=== PATIENT | female | born 1985 | race Caucasian/White ===

== ENCOUNTER → 2023-12-29 10:18 | Outpatient (REF) | payer OTHER, SELFPAY | LOC: REG 10:18 | PROVIDERS: ATTENDING PHYSICIAN Obstetrics & Gynecology | DX: Z34.90 Encounter for supervision of normal pregnancy, unspecified, unspecified trimester (principal) | CPT/HCPCS: 36415; 86850; 86870; 86900; 86901; J2790 ==

== ENCOUNTER 2024-03-16 19:08 | Inpatient (IN) | payer OTHER, SELFPAY ==
[2024-03-16 19:51] VITALS: BP 123/60
[2024-03-16] MEDS: LR 1000 IV (20:10)
[2024-03-16 20:25] LABS: % Basophils 0.3 % (0-2); % Eosinophils 0.4 % (0-6); % Immature Granulocytes 0.6 % (0-0.5); % Lymphocytes 14.6 % (20.5-51.1); % Monocytes 7.5 % (1.7-9.3); % Neutrophils 76.6 % (42.2-75.2); Absolute Immature Granulocytes 0.1 10^3/uL (0-0.05); Absolute Lymphocytes 1.6 10^3/uL (1.2-3.4); Absolute Monocytes 0.8 10^3/uL (0.1-0.6); Absolute Neutrophils 8.1 10^3/uL (1.4-6.5); Hematocrit 33.6 % (37.0-47.0); Hemoglobin 11.9 g/dL (12.0-16.0); Mean Corp Hgb Conc. 35.4 g/dL (33.0-37.0); Mean Corpuscular Hgb 30.1 pg (27.0-31.0); Mean Corpuscular Volume 85.1 fL (81.0-99.0); Mean Platelet Volume 12.5 fL (7.4-10.4); Nucleated Red Blood Cells % 0 %; Platelet Count 90 10^3/uL (130-400); Red Blood Cell Count 3.95 10^6/uL (4.20-5.40); Red Cell Dist. Width 14.7 % (11.5-14.5); White Blood Cell Count 10.6 10^3/uL (4.8-10.8)
[2024-03-16 20:40] LABS: ALT (SGPT) 14 U/L (0-35); AST (SGOT) 23 U/L (14-36); Albumin 3.5 g/dl (3.5-5.0); Alkaline Phosphatase 196 U/L (38-126); Blood Urea Nitrogen 8 mg/dl (7-17); Calcium 9.5 mg/dl (8.4-10.2); Carbon Dioxide 19 mmol/L (22-30); Chloride 107 mmol/L (98-107); Estimated Creatinine Clearance > 125 ml/min; Glucose 80 mg/dl (70-99); Potassium 3.6 mmol/L (3.5-5.1); Sodium 135 mmol/L (135-145); Total Bilirubin 0.5 mg/dl (0.2-1.3); Total Protein 6.1 g/dl (6.3-8.2); eGFR > 60.00
[2024-03-16] MEDS: PENICILLIN 110 UNITS IV (20:40)
[2024-03-16 21:56] LABS: Platelet Count 104 10^3/uL (130-400)
[2024-03-16] MEDS: SUBLIMAZE 100 MCG EPIDURAL (23:11)
[2024-03-16] MEDS: FENTANYL/BUPIVACAINE 100 EPIDURAL (23:11)
[2024-03-17] MEDS: PENICILLIN 55 UNITS IV ×3 (00:18→08:05)
[2024-03-17] MEDS: FENTANYL/BUPIVACAINE 100 EPIDURAL (06:30)
[2024-03-17] MEDS: LR 1000 IV (08:45)
[2024-03-17] MEDS: PITOCIN 30 UNITS/NSS 500 ML IV (08:45)
[2024-03-17] MEDS: MOTRIN 600 MG PO ×2 (12:56→20:12)
[2024-03-18] MEDS: MOTRIN 600 MG PO ×3 (05:47→21:11)
[2024-03-18 06:09] LABS: Hematocrit 31.6 % (37.0-47.0)
[2024-03-18] MEDS: PRENATAL PLUS 1 TABLET PO (20:55)
[2024-03-19 08:28] LABS: Platelet Count 101 10^3/uL (130-400)
[2024-03-19] MEDS: PRENATAL PLUS 1 TABLET PO (08:28)
[2024-03-19] MEDS: MOTRIN 600 MG PO (08:28)
[2024-03-19] MEDS: SENOKOT-S 1 TABLET PO (08:28)
[2024-03-19 15:08] LABS: Syphilis/T. pallidum Ab Reflex Negative (Negative)
== END 2024-03-19 11:58 | disposition home or self-care (01) | DRG 807 ==
LOC: LDRP 19:08
PROVIDERS: Obstetrics & Gynecology; ADMITTING PHYSICIAN Obstetrics & Gynecology
PROC: 10E0XZZ Delivery of Products of Conception, External Approach (ICD-10-PCS; 2024-03-17)
PROC: 10907ZC Drainage of Amniotic Fluid, Therapeutic from Products of Conception, Via Natural or Artificial Opening (ICD-10-PCS; 2024-03-17)
DX: O99.824 Streptococcus B carrier state complicating childbirth (principal); Z37.0 Single live birth; Z3A.39 39 weeks gestation of pregnancy; Z28.310 Unvaccinated for COVID-19; O77.0 Labor and delivery complicated by meconium in amniotic fluid; O69.81X0 Labor and delivery complicated by cord around neck, without compression, not applicable or unspecified; O99.12 Other diseases of the blood and blood-forming organs and certain disorders involving the immune mechanism complicating childbirth; D69.6 Thrombocytopenia, unspecified; O76 Abnormality in fetal heart rate and rhythm complicating labor and delivery
CPT/HCPCS: 80053; 85014; 85018; 85025; 85049; 86780; 86850; 86870; 86900; 86901